=== PATIENT | male | born 1990 | race Caucasian/White ===

== ENCOUNTER 2021-01-17 19:29 | Emergency (ER) | payer MEDICAID, MEDICARE, OTHER ==
[~2021-01-17] VITALS: Ht 180.3 cm; Wt 72.2 kg
[2021-01-17] MEDS ORDERED: LIDOCAINE-MPF 1%, 5ML ONE (19:39)
[2021-01-17] MEDS ORDERED: DIPH,PERTUSS(ACELL),TET VAC/PF 0.5 ML IM-VACC ONE ×2 (19:39→20:00)
--- NOTE | 2021-01-17 19:53 | NUR ---
PT INFORMED OF PLAN OF CARE. MD AT BEDSIDE FOR EVALUATION. PT TOLERATING INTERVENTIONS WELL.
[2021-01-17] MEDS ORDERED: LIDOCAINE 1%, 10ML INFIL ONE (20:00)
[2021-01-17] MEDS ORDERED: LIDOCAINE-MPF 1%, 2ML INFIL ONE (20:00)
--- NOTE | 2021-01-17 20:41 | NUR ---
PT TO ROOM 02. CARE ASSUMED AT THIS TIME.
--- NOTE | 2021-01-17 21:07 | NUR ---
PROVIDER AT BEDSIDE SUTURING LAC
[2021-01-17] MEDS ORDERED: NEOSPORIN OINT. PKT 1 PACKET ONE (21:11)
[2021-01-17 21:21] VITALS: BP 109/59
== END 2021-01-17 21:23 | disposition home or self-care (01) ==
LOC: ED 20:48
DX: S81.011A Laceration without foreign body, right knee, initial encounter (principal); X83.8XXA Intentional self-harm by other specified means, initial encounter; Y93.89 Activity, other specified; Y92.89 Other specified places as the place of occurrence of the external cause; Y99.8 Other external cause status
CPT/HCPCS: 12002; 90471; 90715

== ENCOUNTER 2021-01-27 17:29 | Emergency (ER) | payer MEDICAID ==
[~2021-01-27] VITALS: Ht 180.3 cm; Wt 72.8 kg
[2021-01-27 18:05] VITALS: BP 115/69
== END 2021-01-27 18:16 | disposition home or self-care (01) ==
LOC: ED 17:45
DX: S81.011D Laceration without foreign body, right knee, subsequent encounter (principal); X58.XXXD Exposure to other specified factors, subsequent encounter
CPT/HCPCS: 99281